=== PATIENT | male | born 1950 | race Caucasian/White ===

== ENCOUNTER → 2018-01-24 | Outpatient (CLI) | payer OTHER, MEDICARE | LOC: BHCLAF 11:00 | PROVIDERS: ATTEND Internal Medicine Cardiovascular Disease | DX: R00.2 Palpitations (principal); I25.10 Atherosclerotic heart disease of native coronary artery without angina pectoris | CPT/HCPCS: 93005-PO ==

== ENCOUNTER → 2018-01-30 | Outpatient (CLI) | payer OTHER, MEDICARE | LOC: BHFA 09:30 | PROVIDERS: ATTEND Internal Medicine Cardiovascular Disease | DX: I25.10 Atherosclerotic heart disease of native coronary artery without angina pectoris (principal); R00.2 Palpitations | CPT/HCPCS: 78452; 93017; A9500 ==